=== PATIENT | female | born 1975 | race Native Hawaiian/Other Pacific Islander ===

== ENCOUNTER 2018-08-24 12:02 | Outpatient (CLI) | payer OTHER | END 2018-08-24 20:33 | disposition home or self-care (01) | LOC: RAD 12:02 | DX: M25.561 Pain in right knee (principal); M54.5 Low back pain ==

== ENCOUNTER 2022-08-16 08:13 | Emergency (ER) | payer OTHER ==
[~2022-08-16] VITALS: Ht 165.1 cm; Wt 78.2 kg
[2022-08-16 08:16] VITALS: TEMP 98.1
[2022-08-16 08:48] LABS: PLATELET COUNT 306 K/uL (152-353)
[2022-08-16 10:28] VITALS: BP 15/70
== END 2022-08-16 10:28 | disposition home or self-care (01) ==
LOC: ED 08:13
PROVIDERS: Internal Medicine
DX: R00.2 Palpitations (principal)
CPT/HCPCS: 36415; 80053; 81002; 84484; 85027; 93005; 96374; 99284; J3490

== ENCOUNTER 2022-10-01 15:34 | Outpatient (CLI) | payer OTHER | END 2022-10-01 19:13 | disposition home or self-care (01) | LOC: RAD 15:34 | PROVIDERS: ATTEND Nurse Practitioner Family | DX: N20.2 Calculus of kidney with calculus of ureter (principal) ==